=== PATIENT | male | born 1995 | race Caucasian/White ===

== ENCOUNTER 2016-06-17 14:37 | Emergency (ER) | payer SELFPAY | END 2016-06-17 15:24 | disposition home or self-care (01) | LOC: ER1 14:37 | DX: K02.9 Dental caries, unspecified (principal); I10 Essential (primary) hypertension; Z79.899 Other long term (current) drug therapy | CPT/HCPCS: 99282 ==

== ENCOUNTER 2020-05-30 23:15 | Emergency (ER) | payer OTHER ==
[~2020-05-30 23:15] MED LIST: IBUPROFEN800 MG PO; TYLENOL W/CODEIN1 E1 PO
[2020-05-31 00:50] LABS: HEMOGLOBIN 15.7 gm/dl (14.0-17.5); RED BLOOD COUNT 5.38 M/UL (4.20-5.50); WHITE BLOOD COUNT 10.4 K/UL (4.5-11.0)
[2020-05-31 01:14] LABS: BUN/CREATININE RATIO 19 (0-10)
[2020-05-31] MEDS ORDERED: CARAFATE1 GM/10 ML PO (02:57)
[2020-05-31] MEDS ORDERED: ZOFRAN ODT 4 MG4 MG PO (02:57)
== END 2020-05-31 04:35 | disposition home or self-care (01) ==
LOC: ER1 23:15
PROVIDERS: Family Medicine
DX: R10.13 Epigastric pain (principal); R19.7 Diarrhea, unspecified; K21.9 Gastro-esophageal reflux disease without esophagitis; I10 Essential (primary) hypertension; F17.290 Nicotine dependence, other tobacco product, uncomplicated
CPT/HCPCS: 80053; 81001; 83690; 85025; 96374; 99284; C9113; J7030; Q9967